=== PATIENT | female | born 1970 | race Caucasian/White ===

== ENCOUNTER 2017-10-24 19:19 | Emergency (ER) | payer BC ==
[2017-10-24 19:37] VITALS: BP 133/81; PULSE 67; O2SAT 99
[2017-10-24] MEDS ORDERED: Adacel Vial IM ONE ×2 (19:44→19:45)
--- NOTE | 2017-10-24 19:52 | ERPHSYRPT ---
- History of Present Illness Time Seen by Provider: 10/24/17 19:43 Source: patient Exam Limitations: no limitations Patient Subjective Stated Complaint: Pt arrives to ER with c/o laceration to left 2nd finger stating was drilling when bit slipped and punctured pad of distal phalanx of left 2nd finger. circular 0.5cm laceration with bleeding. Dressed with paper towel from home at this time. States ran under cold water to clean. Triage Nursing Assessment: see above Physician History: The patient is a 47-year-old right-handed female with her complaining that she accidentally cut the tip of her left index finger with a drill bit while she was drilling a hole into a swing set at home. It was bleeding and painful. She denies numbness or tingling. The bleeding has stopped. She is unsure of how deep the wound is. Her last tetanus shot was 20 years ago. Her past medical history significant for migraine headaches. Timing/Duration: today, hour(s) (1), sudden Quality: painful Severity: mild Location: hands (left index finger) Possible Causes: other (drill bit) Allergies/Adverse Reactions: codeine Allergy (Verified 10/24/17 19:37) Vomiting Hx Tetanus, Diphtheria Vaccination/Date Given: No (not UTD) - Review of Systems Constitutional: No Fever, No Chills Eyes: No Symptoms Ears, Nose, & Throat: No Symptoms Respiratory: No Cough, No Dyspnea Cardiac: No Chest Pain, No Edema, No Syncope Abdominal/Gastrointestinal: No Abdominal Pain, No Nausea, No Vomiting, No Diarrhea Genitourinary Symptoms: No Dysuria Musculoskeletal: Injury Skin: Other (puncture wound) Neurological: No Dizziness, No Focal Weakness, No Sensory Changes Psychological: No Symptoms Endocrine: No Symptoms Hematologic/Lymphatic: No Symptoms Immunological/Allergic: No Symptoms All Other Systems: Reviewed and Negative - Past Medical History Pertinent Past Medical History: No - Past Surgical History Past Surgical History: Yes Musculoskeletal: Other Female Surgical History: Tubal Ligation Other Surgical History: bilateral foot surgery - Social History Smoking Status: Current every day smoker How long have you smoked: 10 year Exposure to second hand smoke: Yes Drug Use: none Patient Lives Alone: No - Female History Hx Now: No - Nursing Vital Signs Nursing Vital Signs: Initial Vital Signs Temperature 98 F 10/24/17 19:30 Pulse Rate 67 10/24/17 19:30 Respiratory Rate 18 10/24/17 19:30 Blood Pressure 133/81 10/24/17 19:30 O2 Sat by Pulse Oximetry 99 10/24/17 19:30 Pain Scale Pain Intensity 98 - Physical Exam General Appearance: no apparent distress, alert Eye Exam: PERRL/EOMI, eyes nml inspection Ears, Nose, Throat Exam: normal ENT inspection, pharynx normal, moist mucous membranes Neck Exam: normal inspection, non-tender, supple, full range of motion Respiratory Exam: normal breath sounds, lungs clear, No respiratory distress Cardiovascular Exam: regular rate/rhythm, normal heart sounds Gastrointestinal/Abdomen Exam: soft, mass, No tenderness Pelvic Exam: not done Rectal Exam: not done Back Exam: normal inspection, normal range of motion, No CVA tenderness, No vertebral tenderness Extremity Exam: normal inspection, normal range of motion Neurologic Exam: alert, oriented x 3, cooperative, normal mood/affect, sensation nml, No motor deficits Skin Exam: laceration (small superficial puncture wound to pad of left index finger.) SpO2 Interpretation: normal SpO2: 99 Oxygen Delivery: Room Air - Radiology Exams Left Hand X-ray Interpretation: Interpreted by me, Negative, No Fracture Ordered Tests: Active Orders 24 hr Category Date Time Status Wound Care STAT Care 10/24/17 19:56 Active FINGER(S) Stat Exams 10/24/17 19:56 Taken Medication Summary Discontinued Medications Generic Name Dose Route Start Last Admin Trade Name Freq PRN Reason Stop Dose Admin Diphtheria/Tetanus/Acell Pertussis 0.5 ml 10/24/17 19:44 10/24/17 19:49 Adacel Vial IM 10/24/17 19:45 0.5 ml .ONCE ONE Administration Diphtheria/Tetanus/Acell Pertussis Confirm 10/24/17 19:45 Adacel Vial Administered 10/24/17 19:46 Dose 0.5 ml IM .STK-MED ONE - Progress Progress: unchanged Progress Note: 10/24/17 19:55 Declines analgesics. Counseled pt/family regarding: rad results - Departure Time of Disposition: 20:28 Departure Disposition: Home Clinical Impression: Puncture wound Condition: Stable Critical Care Time: No Referrals: JO-ANN VÁZQUEZ [Primary Care Provider] - Additional Instructions: You have a puncture wound to the tip of your left index finger. The x-ray of your finger was absolutely normal. There was no bone involvement. You were given amoxicillin 500 mg orally in the ER. Continue with amoxicillin 500 mg 3 times a day for 10 days. This puncture wound will heal on its own and does not require stitches. Take ibuprofen as needed. Follow-up with your primary care doctor as needed. You were given a tetanus vaccination in the ER. Prescriptions: Amoxicillin [Amoxil] 1 cap PO TID #30 capsule
[2017-10-24] MEDS ORDERED: AMOXIL 500 MG PO ONE (20:31)
[2017-10-24] MEDS ORDERED: AMOXIL 500 MG ONE (20:35)
--- NOTE | 2017-10-25 08:38 | XRAY ---
Indication: Pain following drill injury. Comparison: None 3 views of the left 2nd finger obtained. No bony, articular, or soft tissue abnormalities.
== END 2017-10-24 20:54 | disposition home or self-care (01) ==
LOC: ED 19:19
DX: S61.231A Puncture wound without foreign body of left index finger without damage to nail, initial encounter (principal); W29.8XXA Contact with other powered hand tools and household machinery, initial encounter; Y92.009 Unspecified place in unspecified non-institutional (private) residence as the place of occurrence of the external cause
CPT/HCPCS: 73140; 90471; 90715; 99284; A9270-GY

== ENCOUNTER 2021-04-21 18:44 | Emergency (ER) | payer SELFPAY ==
[2021-04-21] MEDS ORDERED: Sodium Chloride 0.9% 1000 ML 1,000 ML IV STA (19:17)
[2021-04-21] MEDS ORDERED: solu-MEDROL 125 MG, Sterile H2O 10 ml 2 ML IV ONE ×2 (19:18)
[2021-04-21] MEDS ORDERED: HYDROCODONE-ACETAMIN 2.5-108/5 ML SOLUTION PO STA ×2 (19:26→21:06)
[2021-04-21] MEDS ORDERED: Sodium Chloride 0.9% 1000 ML 1,000 ML ONE (19:44)
[2021-04-21] MEDS ORDERED: HYDROCODONE-ACETAMIN 2.5-108/5 ML SOLUTION ONE ×2 (19:44→21:06)
[2021-04-21] MEDS ORDERED: solu-MEDROL ONE (19:44)
[2021-04-21 19:50] LABS: BASOPHIL % 0.2 % (0.0-0.4); Basophil (Absolute #) 0.03 (0-0.4); Eosinophil % 0.3 % (0.00-5.0); Eosinophil (Absolute #) 0.04 (0-0.5); Hematocrit 33.4 % (35-47); Lymphocyte (Absolute #) 1.47 (1.0-4.6); Lymphocytes % 9.4 % (24.0-44.0); Mean Cell Volume 90.5 fl (78-100); Mean Corpuscular Hemoglobin 29.8 pg (26-32); Mean Corpuscular Hgb Concent. 32.9 g/dl (32-36); Mean Platelet Volume 8.8 fl (7.5-11.0); Monocyte (Absolute #) 0.87 (0.0-1.3); Monocytes % 5.5 % (0.0-12.0); Neutrophil % 84.6 % (36.0-66.0); Platelet Count 374 K/mm3 (150-450); Red Blood Count 3.69 M/mm3 (4.1-5.4); Red Cell Distribution Width 12.3 % (11.5-14.0); White Blood Count 15.7 K/mm3 (4.0-10.5)
[2021-04-21 19:59] LABS: Appearance CLEAR (CLEAR); Bilirubin NEGATIVE (NEGATIVE); Blood NEGATIVE Ery/ul (0-5); Glucose NEGATIVE (NEGATIVE); Ketones NEGATIVE (NEGATIVE); Leukocyte Esterase NEGATIVE (NEGATIVE); Nitrite NEGATIVE (NEGATIVE); Protein,Urine Dip NEGATIVE (Negative); Specific Gravity 1.001 (1.005-1.025); Urobilinogen NEGATIVE mg/dL (0-1)
[2021-04-21 20:07] LABS: INFLUENZA A NEGATIVE (NEGATIVE); INFLUENZA B NEGATIVE (NEGATIVE)
[2021-04-21 20:18] LABS: WBC NONE SEEN /HPF (0-5)
--- NOTE | 2021-04-21 20:25 | ERPHSYRPT ---
- History of Present Illness Time Seen by Provider: 04/21/21 19:00 Source: patient Exam Limitations: no limitations Patient Subjective Stated Complaint: pt here for cough, aches, fever for 2 weeks now. Triage Nursing Assessment: pt alert, resp easy, has dry hacky cough, skin w/d/p. face mask in place, no edema noted Physician History: This is a 51-year-old white female who presents with coughing intermittently over the last 2 weeks. Coworkers have had similar symptoms. Their Covid test have been negative. However, the patient has never had a test done for COVID-19 infection. Her coughing symptoms have increased in the last couple days and she is having associated chest pain with coughing. She takes no medication chronically. She does have an allergy to codeine but this is not a true allergy but 1 more of nausea. She has used Vicodin in the past with no recollection of having any problems using it. Patient has not had a fever. She does not complain of nausea vomiting or diarrhea. She has not had a fever. Timing/Duration: week(s) (2) Severity of Dyspnea-Max: mild Severity of Dyspnea-Current: mild Possible Cause: no prior episodes Modifying Factors: Improves With: coughing Associated Symptoms: cough, weakness, No chest pain/discomfort, No dizziness, No heaviness Allergies/Adverse Reactions: codeine Allergy (Verified 04/21/21 19:05) Vomiting Hx Tetanus, Diphtheria Vaccination/Date Given: No (not UTD) Hx Influenza Vaccination/Date Given: No Hx Pneumococcal Vaccination/Date Given: No Immunizations Up to Date: Yes Travel Risk - International Travel Have you traveled outside of the country in past 3 weeks: No - Coronavirus Screening Are you exhibiting any of the following symptoms?: Yes Symptoms: Fever, Cough: New Onset, Headaches/Body Aches/Fatigue Close contact with a COVID-19 positive Pt in past 14-21 Days: No - Vaccine Status Have you recieved a Covid-19 vaccination: No - Review of Systems Constitutional: Weakness Eyes: No Symptoms Ears, Nose, & Throat: No Symptoms Respiratory: Cough, No Dyspnea Cardiac: Chest Pain (With coughing only) Abdominal/Gastrointestinal: No Symptoms Genitourinary Symptoms: No Symptoms Musculoskeletal: No Symptoms Skin: No Symptoms Neurological: No Symptoms Psychological: No Symptoms Endocrine: No Symptoms Hematologic/Lymphatic: No Symptoms Immunological/Allergic: No Symptoms All Other Systems: Reviewed and Negative - Past Medical History Pertinent Past Medical History: No - Past Surgical History Past Surgical History: Yes Musculoskeletal: Other Female Surgical History: Tubal Ligation Other Surgical History: bilateral foot surgery - Social History Smoking Status: Former smoker How long have you smoked: 10 year Exposure to second hand smoke: Yes Drug Use: none Patient Lives Alone: No - Female History Hx Last Menstrual Period: post Hx Now: No - Nursing Vital Signs Nursing Vital Signs: Initial Vital Signs Temperature 97.2 F 04/21/21 18:57 Pulse Rate 92 H 04/21/21 18:57 Respiratory Rate 18 04/21/21 18:57 Blood Pressure 159/86 04/21/21 18:57 O2 Sat by Pulse Oximetry 99 04/21/21 18:57 Pain Scale Pain Intensity 4 - Physical Exam General Appearance: no apparent distress, alert, anxiety Eye Exam: PERRL/EOMI, eyes nml inspection Ears, Nose, Throat Exam: hearing grossly normal, normal ENT inspection, normal pharynx Neck Exam: normal inspection, non-tender, supple, full range of motion Respiratory Exam: normal breath sounds, lungs clear, airway intact, No chest tenderness, No respiratory distress Cardiovascular/Chest Exam: normal heart sounds, regular rate/rhythm, normal peripheral pulses Abdominal/Gastrointestinal Exam: soft, normal bowel sounds, No tenderness Rectal Exam: not done Extremity Exam: non-tender, normal range of motion, normal inspection, pelvis stable Neurologic Exam: alert, oriented x 3, cooperative, 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 No comparison EKG available.) Ordered Tests: Active Orders 24 hr Category Date Time Status EKG-ER Only STAT Care 04/21/21 19:27 Active IV Insertion STAT Care 04/21/21 19:17 Active Isolation, Initiate & Maintain STAT Care 04/21/21 19:27 Active Pulse Oximetry (ED) STAT Care 04/21/21 19:17 Active CHEST 1 VIEW (PORTABLE) Stat Exams 04/21/21 19:35 Taken CBC W DIFF Stat Lab 04/21/21 19:43 Completed CMP Stat Lab 04/21/21 19:43 Received D-DIMER QUANTITATIVE Stat Lab 04/21/21 19:43 Completed Ferritin Stat Lab 04/21/21 19:43 Received INFLUENZA A+B YANELY Stat Lab 04/21/21 19:42 Completed LDH-LACTATE DEHYDROGENASE Stat Lab 04/21/21 19:43 Received Lactic Acid Stat Lab 04/21/21 19:17 Completed TROPONIN Q3H Lab 04/21/21 19:43 Completed TROPONIN Q3H Lab 04/21/21 22:30 Ordered TROPONIN Q3H Lab 04/22/21 01:30 Ordered TROPONIN Q3H Lab 04/22/21 04:30 Ordered TROPONIN Q3H Lab 04/22/21 07:30 Ordered UA W/RFX UR CULTURE Stat Lab 04/21/21 19:39 Completed Medication Summary Generic Name Dose Route Start Last Admin Trade Name Freq PRN Reason Stop Dose Admin Ceftriaxone Sodium/Dextrose 1 g in 50 mls @ 100 mls/hr 04/21/21 20:26 04/21/21 20:31 Rocephin 1 Gm-D5w 50 Ml Bag IV 04/21/21 20:55 100 ml/hr STAT STA 100 mls/hr Administration Discontinued Medications Generic Name Dose Route Start Last Admin Trade Name Freq PRN Reason Stop Dose Admin Hydrocodone Bitart/Acetaminophen 10 ml 04/21/21 19:26 04/21/21 19:47 Hydrocodone/Acetaminophen 5 Ml Udcup PO 04/21/21 19:27 10 ml STAT STA Administration Hydrocodone Bitart/Acetaminophen Confirm 04/21/21 19:44 Hydrocodone/Acetaminophen 5 Ml Udcup Administered 04/21/21 19:45 Dose 10 ml .ROUTE .STK-MED ONE Methylprednisolone Sodium 0 mg 04/21/21 19:18 04/21/21 19:47 Succinate 125 mg/ Sterile IV 04/21/21 19:19 125 mg Water 2 ml STAT ONE Administration Sodium Chloride 1,000 mls @ 999 mls/hr 04/21/21 19:17 04/21/21 19:47 Sodium Chloride 0.9% 1000 Ml IV 04/21/21 20:17 999 mls/hr .Q1H1M STA Administration Sodium Chloride Confirm 04/21/21 19:44 Sodium Chloride 0.9% 1000 Ml Administered 04/21/21 19:45 Dose 1,000 mls @ ud .ROUTE .STK-MED ONE Ceftriaxone Sodium/Dextrose Confirm 04/21/21 20:29 Rocephin 1 Gm-D5w 50 Ml Bag Administered 04/21/21 20:30 Dose 1 g in 50 mls @ ud IV .STK-MED ONE Methylprednisolone Sodium Succinate Confirm 04/21/21 19:44 Methylprednis Sod Succ 125 Mg/2 Ml Vial Administered 04/21/21 19:45 Dose 125 mg .ROUTE .STK-MED ONE Lab/Rad Data: Laboratory Result Diagrams 04/21/21 19:43 Laboratory Results 04/21/21 04/21/21 04/21/21 Range/Units 19:43 19:43 19:43 WBC 15.7 H (4.0-10.5) K/mm3 RBC 3.69 L (4.1-5.4) M/mm3 Hgb 11.0 L (12.0-16.0) gm/dl Hct 33.4 L (35-47) % MCV 90.5 (78-100) fl MCH 29.8 (26-32) pg MCHC 32.9 (32-36) g/dl RDW 12.3 (11.5-14.0) % Plt Count 374 (150-450) K/mm3 MPV 8.8 (7.5-11.0) fl Gran % 84.6 H (36.0-66.0) % Eos # (Auto) 0.04 (0-0.5) Absolute Lymphs (auto) 1.47 (1.0-4.6) Absolute Monos (auto) 0.87 (0.0-1.3) Lymphocytes % 9.4 L (24.0-44.0) % Monocytes % 5.5 (0.0-12.0) % Eosinophils % 0.3 (0.00-5.0) % Basophils % 0.2 (0.0-0.4) % Absolute Granulocytes 13.30 H (1.4-6.9) Basophils # 0.03 (0-0.4) D-Dimer 349 (215-500) ng/mL Lactic Acid (0.4-2.0) Troponin I < 0.012 (0.000-0.034) ng/mL Urine Color (YELLOW) Urine Appearance (CLEAR) Urine pH (5-6) Ur Specific [place] (1.005-1.025) Urine Protein (Negative) Urine Ketones (NEGATIVE) Urine Blood (0-5) Bernardo/ul Urine Nitrite (NEGATIVE) Urine Bilirubin (NEGATIVE) Urine Urobilinogen (0-1) mg/dL Ur Leukocyte Esterase (NEGATIVE) Urine WBC (Auto) (0-5) /HPF Urine RBC (Auto) (0-2) /HPF U Epithel Cells (Auto) (FEW) /HPF Urine Bacteria (Auto) (NEGATIVE) /HPF Urine Culture Reflexed (NO) Urine Glucose (NEGATIVE) mg/dL Influenza Type A Ag (NEGATIVE) Influenza Type B Ag (NEGATIVE) Group A Strep Antibody (NEGATIVE) 04/21/21 04/21/21 04/21/21 Range/Units 19:42 19:42 19:39 WBC (4.0-10.5) K/mm3 RBC (4.1-5.4) M/mm3 Hgb (12.0-16.0) gm/dl Hct (35-47) % MCV (78-100) fl MCH (26-32) pg MCHC (32-36) g/dl RDW (11.5-14.0) % Plt Count (150-450) K/mm3 MPV (7.5-11.0) fl Gran % (36.0-66.0) % Eos # (Auto) (0-0.5) Absolute Lymphs (auto) (1.0-4.6) Absolute Monos (auto) (0.0-1.3) Lymphocytes % (24.0-44.0) % Monocytes % (0.0-12.0) % Eosinophils % (0.00-5.0) % Basophils % (0.0-0.4) % Absolute Granulocytes (1.4-6.9) Basophils # (0-0.4) D-Dimer (215-500) ng/mL Lactic Acid (0.4-2.0) Troponin I (0.000-0.034) ng/mL Urine Color COLORLESS (YELLOW) Urine Appearance CLEAR (CLEAR) Urine pH 7.0 (5-6) Ur Specific [place] 1.001 (1.005-1.025) Urine Protein NEGATIVE (Negative) Urine Ketones NEGATIVE (NEGATIVE) Urine Blood NEGATIVE (0-5) Bernardo/ul Urine Nitrite NEGATIVE (NEGATIVE) Urine Bilirubin NEGATIVE (NEGATIVE) Urine Urobilinogen NEGATIVE (0-1) mg/dL Ur Leukocyte Esterase NEGATIVE (NEGATIVE) Urine WBC (Auto) NONE SEEN (0-5) /HPF Urine RBC (Auto) NONE (0-2) /HPF U Epithel Cells (Auto) NONE (FEW) /HPF Urine Bacteria (Auto) NONE (NEGATIVE) /HPF Urine Culture Reflexed NO (NO) Urine Glucose NEGATIVE (NEGATIVE) mg/dL Influenza Type A Ag NEGATIVE (NEGATIVE) Influenza Type B Ag NEGATIVE (NEGATIVE) Group A Strep Antibody NOT DETECTED (NEGATIVE) 04/21/21 Range/Units 19:17 WBC (4.0-10.5) K/mm3 RBC (4.1-5.4) M/mm3 Hgb (12.0-16.0) gm/dl Hct (35-47) % MCV (78-100) fl MCH (26-32) pg MCHC (32-36) g/dl RDW (11.5-14.0) % Plt Count (150-450) K/mm3 MPV (7.5-11.0) fl Gran % (36.0-66.0) % Eos # (Auto) (0-0.5) Absolute Lymphs (auto) (1.0-4.6) Absolute Monos (auto) (0.0-1.3) Lymphocytes % (24.0-44.0) % Monocytes % (0.0-12.0) % Eosinophils % (0.00-5.0) % Basophils % (0.0-0.4) % Absolute Granulocytes (1.4-6.9) Basophils # (0-0.4) D-Dimer (215-500) ng/mL Lactic Acid 0.7 (0.4-2.0) Troponin I (0.000-0.034) ng/mL Urine Color (YELLOW) Urine Appearance (CLEAR) Urine pH (5-6) Ur Specific [place] (1.005-1.025) Urine Protein (Negative) Urine Ketones (NEGATIVE) Urine Blood (0-5) Bernardo/ul Urine Nitrite (NEGATIVE) Urine Bilirubin (NEGATIVE) Urine Urobilinogen (0-1) mg/dL Ur Leukocyte Esterase (NEGATIVE) Urine WBC (Auto) (0-5) /HPF Urine RBC (Auto) (0-2) /HPF U Epithel Cells (Auto) (FEW) /HPF Urine Bacteria (Auto) (NEGATIVE) /HPF Urine Culture Reflexed (NO) Urine Glucose (NEGATIVE) mg/dL Influenza Type A Ag (NEGATIVE) Influenza Type B Ag (NEGATIVE) Group A Strep Antibody (NEGATIVE) - Progress Progress: improved, re-examined Air Movement: good Progress Note: 04/21/21 20:33 Chest x-ray shows right lower lobe atelectasis versus early infiltrate. Blood Culture(s) Obtained: Yes Antibiotics given: Yes Counseled pt/family regarding: lab results, diagnosis, need for follow-up, rad results - Departure Departure Disposition: Home Clinical Impression: Right lower lobe pneumonia Condition: Stable Critical Care Time: No Referrals: JO-ANN VÁZQUEZ [Primary Care Provider] - Follow up/PCP as directed Additional Instructions: Take your medication as prescribed. Quarantine yourself until the results of your COVID-19 test returned. Drink plenty of fluids. Prescriptions: Ondansetron ODT 4 MG [Zofran Odt 4 mg] 4 mg PO Q6H PRN PRN #10 tablet PRN Reason: Vomiting Hydrocodone/Acetaminophen [Hydrocodone-Acetamn 7.5-325/15] 10 ml PO Q8H PRN PRN #120 ml MDD 30 ml PRN Reason: Cough Prednisone 10 mg [Deltasone 10 mg] 10 mg PO TID #12 tablet Albuterol 8 gm Mdi Hfa [Ventolin Hfa MDI] 8 gm IH Q4H #1 gm Azithromycin 250 mg [Zithromax 250 MG TABLET] 250 mg PO ZPACK #6 tablet
[2021-04-21] MEDS ORDERED: ROCEPHIN 1 Gm-D5w 50 ml Bag** 1 G/50 ML IVPB IV STA (20:26)
[2021-04-21] MEDS ORDERED: ROCEPHIN 1 Gm-D5w 50 ml Bag** 1 G/50 ML IVPB IV ONE (20:29)
[2021-04-21 20:39] LABS: ALKALINE PHOSPHATASE 75 U/L (38-126); ANION GAP 14.2 MEQ/L (5-15); BLOOD UREA NITROGEN 10 mg/dL (7-17); CHLORIDE 102 mmol/L (98-107); Calcium 9.7 mg/dL (8.4-10.2); Carbon Dioxide 26 mmol/L (22-30); Creatinine 1 0.76 mg/dL (0.52-1.04); EST GLOMERULAR FILTRATION RATE > 60.0 ML/MIN; Ferritin 129 ng/mL (11.1-264); Glucose 100 mg/dL (74-106); LDH-LACTATE DEHYDROGENASE 195 U/L (120-246); Potassium 4.1 mmol/L (3.5-5.1); SGOT/AST 23 U/L (14-36); SGPT/ALT 17 U/L (0-35); SODIUM 138 mmol/L (137-145)
[2021-04-21 21:05] VITALS: BP 124/71; PULSE 85; O2SAT 95
--- NOTE | 2021-04-22 08:49 | XRAY ---
Indication: Fever and cough. Suspect Covid 19. Comparison: None Portable chest demonstrates mild right base infiltrate/atelectasis/effusion. Remaining heart and left lung normal. Bony thorax intact.
== END 2021-04-21 21:22 | disposition home or self-care (01) ==
LOC: ED 18:44
DX: J18.9 Pneumonia, unspecified organism (principal); R53.1 Weakness; Z79.891 Long term (current) use of opiate analgesic; R07.9 Chest pain, unspecified
CPT/HCPCS: 36000; 36415; 71045; 80053; 81001; 82728; 83605; 83615; 84484; 85025; 85379; 86308; 87400; 87651; 93005; 94760; 96360; 96374; 99284; U0003; J0696; J2930; A9270-GY

== ENCOUNTER 2023-01-06 21:01 | Emergency (ER) | payer OTHER ==
[2023-01-06 21:26] VITALS: TEMP 97.3
[2023-01-06 22:08] LABS: Appearance Clear (Clear); Bacteria None Seen /HPF (None Seen); Bilirubin Negative (Negative); Blood Negative (Negative); Epithelial Cells None Seen /HPF (None Seen); Glucose, Urine Negative (Negative); Hyaline Casts NONE SEEN /LPF (0-2); Ketones Negative (Negative); Leukocyte Esterase Negative (Negative); Nitrite Negative (Negative); Protein,Urine Dip Negative (Negative); RBC 0-2 /HPF (0-5); Specific Gravity <=1.005 (1.005-1.030); Urobilinogen 0.2 mg/dL (0.2); WBC 0-2 /HPF (0-5)
[2023-01-06 22:10] LABS: ADD URINE CULTURE? NO (NO)
[2023-01-06 22:43] LABS: Absolute Neutrophil Ct (ANC) 1.84 x10^3/uL (1.4-6.9); BASOPHIL % 0.3 % (0.0-0.4); Basophil (Absolute #) 0.01 x10^3/uL (0-0.4); Eosinophil % 1.3 % (0.00-5.0); Eosinophil (Absolute #) 0.05 x10^3/uL (0-0.5); Hematocrit 38.7 % (35-47); Lymphocyte (Absolute #) 1.47 x10^3/uL (1.0-4.6); Lymphocytes % 39.3 % (24.0-44.0); Mean Cell Volume 91.1 fL (78-100); Mean Corpuscular Hemoglobin 30.6 pg (26-32); Mean Corpuscular Hgb Concent. 33.6 g/dL (32-36); Mean Platelet Volume 9.6 fL (7.5-11.0); Monocyte (Absolute #) 0.37 x10^3/uL (0.0-1.3); Monocytes % 9.9 % (0.0-12.0); Neutrophil % 49.2 % (36.0-66.0); Platelet Count 210 x10^3/uL (150-450); Red Blood Count 4.25 x10^6/uL (4.1-5.4); Red Cell Distribution Width 12.1 % (11.5-14.0); White Blood Count 3.7 x10^3/uL (4.0-10.5)
[2023-01-06 22:56] VITALS: O2SAT 98
[2023-01-06 23:00] LABS: ALBUMIN 4.6 g/dL (3.5-5.0); ALKALINE PHOSPHATASE 58 U/L (38-126); ANION GAP 12.7 MEQ/L (5-15); BLOOD UREA NITROGEN 13 mg/dL (7-17); CHLORIDE 102 mmol/L (98-107); Calcium 9.3 mg/dL (8.4-10.2); Carbon Dioxide 31 mmol/L (22-30); Creatinine 1 0.79 mg/dL (0.52-1.04); EST GLOMERULAR FILTRATION RATE > 60.0 ML/MIN; Glucose 102 mg/dL (74-106); LIPASE 120 U/L (23-300); Potassium 4.2 mmol/L (3.5-5.1); SGOT/AST 30 U/L (14-36); SGPT/ALT 19 U/L (0-35); SODIUM 141 mmol/L (137-145); Total Protein 7.8 g/dL (6.3-8.2)
--- NOTE | 2023-01-06 23:09 | ERPHSYRPT ---
- History of Present Illness Time Seen by Provider: 01/06/23 21:08 Historian: patient Exam Limitations: no limitations Patient Subjective Stated Complaint: pt states that during the night Tuesday night she was woken up by bilat back pain just under her ribs and it has been consistent since that time. yesterday the pain started moving around to bilat front/lateral under ribs, groin, and hips. reports decreased frequency with urination today but denies any other urinary symptoms. denies difficulty with or change to bowel habits with LBM this am. last menstrual period approx 3 yrs ago. denies any hot flashes, cramping, etc. today she has also been nauseated but no vomiting. denies cp, dickens, sob, difficulty breathing, or other ill feelings. states she had a fever of 101 >48hrs ago and is getting over an upper respiratory infection which included dickens, cough, chills that have been unchanged since this pain developed. Triage Nursing Assessment: pt ambulated to room 8 independently with slow steady gait after standing on scales for weight acquisition and to bathroom to obtain urine sample. pt is alert and oriented times three, able to speak in complete sentences, able to move all extremities, and with resp even and unlabored. abd soft, nondistended, nontender to touch with positive bowel sounds in all quads. denies any change or difficulty with food/ fluid intake. Physician History: 52 years old female presented to the ER with chief complaint of bilateral flank pain for last 2 to 3 days with progressive worsening. Patient reports pain radiating to lower back. Reports mild increased urinary frequency and burning but no fever or chills. Denies any nausea or vomiting. No history of kidney stones. Denies any constipation or diarrhea. Allergies/Adverse Reactions: codeine Allergy (Verified 01/06/23 21:08) Vomiting Home Medications: No Reportable Medications [No Reported Medications] 01/06/23 [History] Hx Tetanus, Diphtheria Vaccination/Date Given: No (not UTD) Hx Influenza Vaccination/Date Given: No Hx Pneumococcal Vaccination/Date Given: No Immunizations Up to Date: No Travel Risk - International Travel Have you traveled outside of the country in past 3 weeks: No - Coronavirus Screening Are you exhibiting any of the following symptoms?: No Close contact with a COVID-19 positive Pt in past 14-21 Days: No - Vaccine Status Have you recieved a Covid-19 vaccination: No - Review of Systems Constitutional: No Symptoms Ears, Nose, & Throat: No Symptoms Respiratory: No Symptoms Cardiac: No Symptoms Abdominal/Gastrointestinal: Abdominal Pain Genitourinary Symptoms: Dysuria, Flank Pain Musculoskeletal: No Symptoms Skin: No Symptoms Neurological: No Symptoms Hematologic/Lymphatic: No Symptoms Immunological/Allergic: No Symptoms - Past Medical History Pertinent Past Medical History: Yes Neurological History: No Pertinent History ENT History: No Pertinent History Cardiac History: No Pertinent History Respiratory History: No Pertinent History Endocrine Medical History: No Pertinent History Musculoskeletal History: Fractures GI Medical History: No Pertinent History History: No Pertinent History Psycho-Social History: No Pertinent History Female Reproductive Disorders: No Pertinent History - Past Surgical History Past Surgical History: Yes Neuro Surgical History: No Pertinent History Cardiac: No Pertinent History Respiratory: No Pertinent History Gastrointestinal: No Pertinent History Genitourinary: No Pertinent History Musculoskeletal: Other Female Surgical History: Tubal Ligation Other Surgical History: bilateral foot surgery - Social History Smoking Status: Former smoker How long have you smoked: 10 year Exposure to second hand smoke: Yes Drug Use: none Patient Lives Alone: No - Nursing Vital Signs Nursing Vital Signs: Initial Vital Signs Temperature 97.3 F 01/06/23 21:13 Pulse Rate 67 01/06/23 21:13 Respiratory Rate 16 01/06/23 21:13 Blood Pressure 143/73 01/06/23 21:13 O2 Sat by Pulse Oximetry 100 01/06/23 21:13 Pain Scale Pain Intensity 7 - Physical Exam General Appearance: no apparent distress, alert Eye Exam: PERRL/EOMI Ears, Nose, Throat Exam: normal ENT inspection Neck Exam: normal inspection, supple, full range of motion Respiratory Exam: normal breath sounds, lungs clear Cardiovascular Exam: regular rate/rhythm, normal heart sounds Gastrointestinal/Abdomen Exam: soft, normal bowel sounds, tenderness (Left upper quadrant/flank) Back Exam: normal inspection, normal range of motion, No CVA tenderness Extremity Exam: normal inspection, normal range of motion Neurologic Exam: alert, oriented x 3, cooperative Skin Exam: normal color SpO2 Interpretation: normal SpO2: 98 O2 Delivery: Room Air Ordered Tests: Active Orders 24 hr Category Date Time Status ABDOMEN AND PELVIS W/0 CONTRAS [CT] Stat Exams 01/06/23 22:31 Completed CBC W DIFF Stat Lab 08/17/23 22:40 Completed CMP Stat Lab 01/06/23 22:40 Completed LIPASE Stat Lab 01/06/23 22:40 Completed UA W/RFX UR CULTURE Stat Lab 01/06/23 21:07 Completed Lab/Rad Data: Laboratory Result Diagrams 01/06/23 22:40 01/06/23 22:40 Laboratory Results 01/06/23 01/06/23 01/06/23 Range/Units 22:40 22:40 21:07 WBC 3.7 L (4.0-10.5) x10^3/uL RBC 4.25 (4.1-5.4) x10^6/uL Hgb 13.0 (12.0-16.0) g/dL Hct 38.7 (35-47) % MCV 91.1 (78-100) fL MCH 30.6 (26-32) pg MCHC 33.6 (32-36) g/dL RDW 12.1 (11.5-14.0) % Plt Count 210 (150-450) x10^3/uL MPV 9.6 (7.5-11.0) fL Gran % 49.2 (36.0-66.0) % Immature Gran % (Auto) 0.0 (0.00-0.4) % Nucleat RBC Rel Count 0.0 (0.00-0.1) % Eos # (Auto) 0.05 (0-0.5) x10^3/uL Immature Gran # (Auto) 0.00 (0.00-0.03) x10^3u/L Absolute Lymphs (auto) 1.47 (1.0-4.6) x10^3/uL Absolute Monos (auto) 0.37 (0.0-1.3) x10^3/uL Absolute Nucleated RBC 0.00 (0.00-0.01) x10^3u/L Lymphocytes % 39.3 (24.0-44.0) % Monocytes % 9.9 (0.0-12.0) % Eosinophils % 1.3 (0.00-5.0) % Basophils % 0.3 (0.0-0.4) % Absolute Granulocytes 1.84 (1.4-6.9) x10^3/uL Basophils # 0.01 (0-0.4) x10^3/uL Sodium 141 (137-145) mmol/L Potassium 4.2 (3.5-5.1) mmol/L Chloride 102 (98-107) mmol/L Carbon Dioxide 31 H (22-30) mmol/L Anion Gap 12.7 (5-15) MEQ/L BUN 13 (7-17) mg/dL Creatinine 0.79 (0.52-1.04) mg/dL Estimated GFR > 60.0 ML/MIN Glucose 102 (74-106) mg/dL Calcium 9.3 (8.4-10.2) mg/dL Total Bilirubin 0.30 (0.2-1.3) mg/dL AST 30 (14-36) U/L ALT 19 (0-35) U/L Alkaline Phosphatase 58 (38-126) U/L Serum Total Protein 7.8 (6.3-8.2) g/dL Albumin 4.6 (3.5-5.0) g/dL Lipase 120 (23-300) U/L Urine Color Yellow (Yellow) Urine Appearance Clear (Clear) Urine pH 7.0 (4.6-8.0) Ur Specific [place] <=1.005 (1.005-1.030) Urine Protein Negative (Negative) Urine Glucose (UA) Negative (Negative) mg/dL Urine Ketones Negative (Negative) Urine Blood Negative (Negative) Urine Nitrite Negative (Negative) Urine Bilirubin Negative (Negative) Urine Urobilinogen 0.2 (0.2) mg/dL Ur Leukocyte Esterase Negative (Negative) U Hyaline Cast (Auto) NONE SEEN (0-2) /LPF Urine Microscopic RBC 0-2 (0-5) /HPF Urine Microscopic WBC 0-2 (0-5) /HPF Ur Epithelial Cells None Seen (None Seen) /HPF Urine Bacteria None Seen (None Seen) /HPF Urine Culture Reflexed NO (NO) - Progress Progress Note: 01/06/23 23:11 52 years old female presented to the ER with chief complaint of bilateral flank pain for last 2 to 3 days with progressive worsening. Patient reports pain radiating to lower back. Reports mild increased urinary frequency and burning but no fever or chills. Denies any nausea or vomiting. No history of kidney stones. Denies any constipation or diarrhea. Patient has tenderness in the left flank/left upper quadrant. No lower quadrant tenderness. Declined pain medications. UA negative for UTI. White count 3.7, unremarkable chemistries. CT abdomen pelvis is pending. 01/06/23 23:18 CT abdomen pelvis negative for ureteral lithiasis, pyelonephritis, obstruction, colitis, pancreatitis. Has some cyst in the liver for which patient is advised to have outpatient follow-up. Patient is not hurting in the right upper quadrant. She is advised to take Tylenol/ibuprofen as needed and outpatient follow-up. Discussed signs symptoms of worsening needing return to ER which she seems understanding. Stable for discharge. Counseled pt/family regarding: lab results, diagnosis, need for follow-up, rad results Medical Desision Making - Diagnostic Testing Diagnostic test were ordered, analyzed, and reviewed by me: Yes Radiological Interpretation: Reviewed by me - Risk of complications The pt has a mod risk of morbidity or mortality based on: Need for prescription drug management - Departure Departure Disposition: Home Clinical Impression: Flank pain, Hepatic cyst Condition: Stable Critical Care Time: No Referrals: DOCTOR,NO FAMILY [Primary Care Provider] - Follow up with PCP 1 day Instructions: Flank Pain (DC) Additional Instructions: Take Tylenol/ibuprofen as needed for pain. Follow-up with primary care for reevaluation. Return to ER for any worsening.
--- NOTE | 2023-01-06 23:11 | XRAY ---
CLINICAL HISTORY:bilateral flank pain COMPARISON:None. TECHNIQUE:CT scan of the abdomen and pelvis was performed without IV contrast. Coronal and sagittal reconstructive images were also obtained. FINDINGS: Abdomen: The liver is of average size. Few hypodense/cystic lesions are seen in segments 8, 4, and 3 of the liver, the largest measuring 3 x 2.4cm in segment VIII. The intrahepatic biliary radicals and the bile ducts are normal. The spleen, pancreas, and adrenal glands are unremarkable. The kidneys are unremarkable. They are normal in size and shape. No calculi or hydronephrosis. The gallbladder is distended. There is no evidence of wall thickening/ pericholecystic collection. The ascending colon, the transverse colon, and the descending colon visualized small bowel loops are unremarkable. There is no evidence of significant enlargement of the mesenteric or retroperitoneal lymph nodes. Pelvis: The urinary bladder is unremarkable. The rectosigmoid colon is unremarkable. The uterus and adnexa appear unremarkable. No evidence of pelvic lymphadenopathy. The lumbar spine shows degenerative changes with levoscoliosis. IMPRESSION: 1. No evidence of urolithiasis in the present study. 2. Few benign hepatic cysts in both lobes of the liver. 3. No other significant acute abnormality detected in the abdomen and pelvis. Electronically Signed by: Sera Chaney MD. (01/06/2023 22:09:58 INTERCEPTOR OPERATOR)
[2023-01-06 23:14] VITALS: BP 132/74; PULSE 63; RESP 20
== END 2023-01-06 23:27 | disposition home or self-care (01) ==
LOC: ED 21:01
DX: K76.89 Other specified diseases of liver (principal); R10.9 Unspecified abdominal pain; Z28.310 Unvaccinated for COVID-19
CPT/HCPCS: 36415; 74176; 80053; 81001; 83690; 85025; 99283